=== PATIENT | male | born 1995 | race Caucasian/White ===

== ENCOUNTER 2018-12-26 11:13 | Emergency (ER) | payer MEDICAID ==
[~2018-12-26] VITALS: Ht 170.2 cm; Wt 72.2 kg
[2018-12-26 11:19] VITALS: BP 148/86; PULSE 61; RESP 16; Ht 170.2 cm; Wt 72.2 kg
[2018-12-26] MEDS ORDERED: LIDOCAINE 1% (MDV) 20 ML INJ SC ONE (12:00)
[2018-12-26] MEDS ORDERED: BACITRACIN 0.9 GM OINT TOP ONE (12:00)
[2018-12-26] MEDS ORDERED: OXYCODONE/ACETAMINOPHEN (5/325) TAB PO ONE (12:00)
--- NOTE | 2018-12-26 12:04 | ERD ---
ER Documentation Chief Complaint Chief Complaint LT THUMB LACERATION AT WORK THIS MORNING HPI 22-year-old male presents with complaint of left thumb laceration after cutting his thumb on a saw this morning at work. Denies any numbness or weakness. States he is full range of motion. Denies any foreign bodies in the wound. States he is up-to-date on his tetanus. States the pain is currently 3 out of 10 but he would like pain medication because he knows that the procedur to to suture it is going to be painful. ROS All systems reviewed and are negative except as per history of present illness. Medications Home Meds Active Scripts Cephalexin* (Keflex*) 500 Mg Capsule, 500 MG PO QID for 7 Days, CAP Prov:ROSALVA CROOK 12/26/18 PMhx/Soc Medical and Surgical Hx: pt denies Medical Hx, pt denies Surgical Hx Hx Alcohol Use: No Hx Substance Use: No Hx Tobacco Use: No Smoking Status: Never smoker FmHx Family History: No diabetes, No coronary disease, No other Physical Exam Vitals Vital Signs Date Temp Pulse Resp B/P (MAP) Pulse Ox O2 O2 Flow FiO2 Time Delivery Rate 12/26/18 98.1 61 16 148/86 99 11:19 (106) Physical Exam Const: No acute distress Head: Atraumatic Eyes: Normal Conjunctiva ENT: Normal External Ears, Nose and Mouth. Neck: Full range of motion. No meningismus. Resp: Clear to auscultation bilaterally Cardio: Regular rate and rhythm, no murmurs Abd: Soft, non tender, non distended. Normal bowel sounds Skin: No petechiae or rashes Back: No midline or flank tenderness Ext: No cyanosis, or edema Neur: Awake and alert Psych: Normal Mood and Affect left first digit: Approximately 3 cm laceration noted over the ventral aspect of digit with no underlying bony deformities or foreign bodies noted. Thumb has full range of motion and sensation is intact. Results 24 hrs Current Medications Medications Dose Sig/Judi Start Time Status Last (Trade) Ordered Route PRN Stop Time Admin Dose Reason Admin Lidocaine 20 ml ONCE ONCE 12/26/18 DC 12/26/18 (Xylocaine SC 12:00 11:59 1% (Mdv) 20 12/26/18 12:01 ml) Oxycodone/ 1 tab ONCE ONCE 12/26/18 DC 12/26/18 Acetaminophen PO 12:00 11:58 (Percocet 12/26/18 12:01 (5/ 325)) Bacitracin 1 applic ONCE ONCE 12/26/18 DC 12/26/18 (Bacitracin TOP 12:00 11:58 Oint (Ud)) 12/26/18 12:01 Procedures/MDM DIAGNOSTIC IMAGING REPORT Patient: JESU BRUCE : 1995 Age: 23 Sex: M MR #: [id number] DOS: 12/26/18 1150 Ordering MD: ROSALVA CROOK Location: [facility] Room/Bed: PROCEDURE: XR right thumb CLINICAL INDICATION: Trauma, pain TECHNIQUE: Three views of the right thumb were obtained. COMPARISON: None available. FINDINGS: There is no acute fracture or dislocation. Osseous structures are intact. Joint spaces are maintained. Soft tissue defect is seen in distal thumb. IMPRESSION: 1. No acute osseous abnormality. 2. Distal thumb soft tissue defect/laceration without visible radiopaque foreign body. RPTAT: BB Physician [place] Date Time Electronically viewed and signed by Physician Keara on 12/26/2018 12:42 RM/ CC: ROSALVA CROOK [id number] Laceration Repair by me: Anesthesia: 1% lidocaine locally Location: First left digit Tendon/Joint/Nerves: No injury Foreign body: None detected after copious irrigation and exploration Technique: Simple Interrupted Sutures Complexity: No subcutaneous sutures/mucosal repair/edge excision Post Closure Length: 3 cm Patient's bleeding was easily controlled in the department and there is no indication of anemia. No evidence of compartment syndrome, neurologic injury, vascular injury, open joint, tendon laceration, or foreign body. Low suspicion for neurovascular compromise. Patient is appropriate for outpatient follow up. Patient was placed on Keflex due to the possibility of a contamination as well as location of wound. Tetanus vaccine was 9 years patient stated he just received his tetanus vaccine 3 years ago. 48 hour wound check. Scar minimization instructions given. Departure Diagnosis: Primary Impression: Laceration Condition: Stable ROSALVA CROOK Dec 26, 2018 12:04
[2018-12-26] MEDS ORDERED: CEPH-443 PO (12:05)
== END 2018-12-26 13:53 | disposition home or self-care (01) ==
LOC: FTE 11:13
DX: S61.012A Laceration without foreign body of left thumb without damage to nail, initial encounter (principal); W31.1XXA Contact with metalworking machines, initial encounter; Y92.89 Other specified places as the place of occurrence of the external cause
CPT/HCPCS: 12002; 73140; Z7502; Z7610

== ENCOUNTER 2018-12-29 09:33 | Emergency (ER) | payer MEDICAID ==
[~2018-12-29] VITALS: Ht 165.1 cm; Wt 71.2 kg
[~2018-12-29 09:33] MED LIST: CEPH-443 PO
[2018-12-29 09:35] VITALS: BP 135/73; PULSE 52; RESP 18; Ht 165.1 cm; Wt 71.2 kg
--- NOTE | 2018-12-29 09:45 | ERD ---
ER Documentation Chief Complaint Chief Complaint left thumb 2 day wound check HPI 23-year-old male [id number] is here for wound check for laceration that was repaired here on Saturday on his left thumb. He is taking Keflex as prescribed. His pain is improving. No numbness or tingling. No other complaints. ROS All systems reviewed and are negative except as per history of present illness. Medications Home Meds Active Scripts Cephalexin* (Keflex*) 500 Mg Capsule, 500 MG PO QID for 7 Days, CAP Prov:ROSALVA CROOK 12/26/18 PMhx/Soc Hx Alcohol Use: No Hx Substance Use: No Hx Tobacco Use: No FmHx Family History: No diabetes Physical Exam Vitals Vital Signs Date Temp Pulse Resp B/P (MAP) Pulse Ox O2 O2 Flow FiO2 Time Delivery Rate 12/29/18 97.8 52 18 135/73 98 09:35 (93) Physical Exam Const: No acute distress Head: Atraumatic Eyes: Normal Conjunctiva ENT: Normal External Ears, Nose and Mouth. Neck: Full range of motion. No meningismus. Resp: Clear to auscultation bilaterally Cardio: Regular rate and rhythm, no murmurs Hand -left Skin: Healing laceration on distal left thumb with sutures in place, no surrounding erythema or edema, scant dried blood Compartments: Soft Sensation: Intact shoulder/pinky/middle finger/thumb web space Bones: Nontender Snuffbox: Nontender Joints: No effusion Thumb: Flex/Ext: Normal Opposition: Normal Thumbs up: Normal Results 24 hrs Current Medications Medications Dose Sig/Judi Start Time Status Last (Trade) Ordered Route PRN Stop Time Admin Dose Reason Admin Neomycin/ 1 applic ONCE ONCE 12/29/18 Polymyxin/ TOP 10:00 Bacitracin 12/29/18 10:01 (Neosporin Topical Oint) Procedures/MDM Patient's wound is healing appropriately without any evidence of infection. He should continue to take the antibiotics as prescribed. Wound was appropriately redressed and bandaged here. Patient counseled regarding my diagnostic impression and care plan. Prior to discharge all questions answered. Pt agrees with treatment plan and understands strict return precautions. Pt is instructed to follow up with primary care provider within 24-48 hours. Precautionary instructions provided including instructions to return to the ER if not improving or for any worsening or changing symptoms or concerns. Departure Diagnosis: Primary Impression: Encounter for wound re-check Condition: Stable GIBSON BRITTON PA-C Dec 29, 2018 09:45
[2018-12-29] MEDS ORDERED: NEOMYC/POLYMYX/BACIT 30 GM OINT TOP ONE (10:00)
== END 2018-12-29 10:35 | disposition left against medical advice (07) ==
LOC: FTE 09:33
DX: Z48.01 Encounter for change or removal of surgical wound dressing (principal)
CPT/HCPCS: Z7502; Z7610; 99281